=== PATIENT | female | born 1945 | race Caucasian/White ===

== ENCOUNTER 2017-02-06 21:53 | Emergency (ER) | payer MEDICARE ==
[2017-02-07 02:31] LABS: RED BLOOD COUNT 5.12 M/UL (4.00-5.10); WHITE BLOOD COUNT 9.1 K/UL (4.5-11.0)
[2017-03-10] MEDS ORDERED: OSTERA TABLET1 EACH PO (23:34)
[2017-03-17] MEDS ORDERED: NYSTATIN1 EAC1 PO (16:24)
[2017-03-17] MEDS ORDERED: CEFUROXIME500 MG PO (16:29)
[2017-03-17] MEDS ORDERED: CALCIUM600 MG PO (16:37)
[2017-03-17] MEDS ORDERED: DULCOLAX10 MG PR (16:39)
[2017-03-17] MEDS ORDERED: PROTONIX40 MG PO (17:08)
== END 2017-02-07 09:00 | disposition home or self-care (01) ==
LOC: ER1 21:53
PROVIDERS: Emergency Medicine
DX: N39.0 Urinary tract infection, site not specified (principal); M54.5 Low back pain; E11.9 Type 2 diabetes mellitus without complications; Z79.84 Long term (current) use of oral hypoglycemic drugs; Z79.4 Long term (current) use of insulin; Z79.899 Other long term (current) drug therapy
CPT/HCPCS: 36415; 72131; 80053; 81001; 82150; 83690; 85025; 87086; 96365; 96375; 99284; J0696; J2270; J2405; J7050

== ENCOUNTER 2017-02-12 12:27 | Inpatient (IN) | payer MEDICARE ==
[~2017-02-12] VITALS: Ht 167.6 cm; Wt 86.6 kg
[2017-02-12] MEDS ORDERED: FOSAMAX70 MG PO (15:13)
[2017-02-12] MEDS ORDERED: ASPIRIN EC81 MG PO (15:15)
[2017-02-12] MEDS ORDERED: INVOKANA300 MG PO (15:16)
[2017-02-12] MEDS ORDERED: SENNA LAXATIVE8.6 MG PO (15:16)
[2017-02-12] MEDS ORDERED: CLARITIN10 MG PO (15:17)
[2017-02-12] MEDS ORDERED: LEVEMIR100 UNIT/1 SQ (15:17)
[2017-02-12] MEDS ORDERED: VITAMIN C 500500 MG PO (15:18)
[2017-02-12] MEDS ORDERED: SIMVASTATIN40 MG PO (15:19)
[2017-02-12] MEDS ORDERED: FERROUS SULFAT325 MG PO (15:20)
[2017-02-12] MEDS ORDERED: GLUCOPHAGE850 MG PO (15:24)
[2017-02-12 17:07] LABS: HEMOGLOBIN 14.1 gm/dl (12.3-15.3); RED BLOOD COUNT 4.89 M/UL (4.00-5.10); WHITE BLOOD COUNT 16.2 K/UL (4.5-11.0)
[2017-02-12 17:39] LABS: BUN/CREATININE RATIO 17 (0-10)
[2017-02-13 06:08] LABS: HEMOGLOBIN 13.1 gm/dl (12.3-15.3); RED BLOOD COUNT 4.51 M/UL (4.00-5.10)
[2017-02-13 06:34] LABS: BUN/CREATININE RATIO 19 (0-10)
[2017-02-14 05:41] LABS: HEMOGLOBIN 12.8 gm/dl (12.3-15.3); RED BLOOD COUNT 4.43 M/UL (4.00-5.10); WHITE BLOOD COUNT 10.1 K/UL (4.5-11.0)
[2017-02-14 05:57] LABS: BUN/CREATININE RATIO 15 (0-10)
[2017-02-15 05:38] LABS: HEMOGLOBIN 13.8 gm/dl (12.3-15.3); RED BLOOD COUNT 4.82 M/UL (4.00-5.10); WHITE BLOOD COUNT 10.4 K/UL (4.5-11.0)
[2017-02-15 05:57] LABS: BUN/CREATININE RATIO 19 (0-10)
[2017-02-16 05:55] LABS: BUN/CREATININE RATIO 18 (0-10)
[2017-02-17 05:16] LABS: HEMOGLOBIN 13.1 gm/dl (12.3-15.3); RED BLOOD COUNT 4.55 M/UL (4.00-5.10); WHITE BLOOD COUNT 12.3 K/UL (4.5-11.0)
[2017-02-17 06:33] LABS: BUN/CREATININE RATIO 21 (0-10)
[2017-02-18 04:32] LABS: BUN/CREATININE RATIO 16 (0-10)
[2017-02-19] MEDS ORDERED: VITAMIN D250000 UNIT PO (15:23)
[2017-03-10] MEDS ORDERED: OSTERA TABLET1 EACH PO (23:34)
[2017-03-17] MEDS ORDERED: NYSTATIN1 EAC1 PO (16:24)
[2017-03-17] MEDS ORDERED: CEFUROXIME500 MG PO (16:29)
[2017-03-17] MEDS ORDERED: CALCIUM600 MG PO (16:37)
[2017-03-17] MEDS ORDERED: DULCOLAX10 MG PR (16:39)
[2017-03-17] MEDS ORDERED: PROTONIX40 MG PO (17:08)
== END 2017-02-19 16:22 | disposition home or self-care (01) | DRG 478 ==
LOC: M/S 12:27
PROVIDERS: Internal Medicine; Orthopaedic Surgery; Physician Assistant Medical; ADMIT Internal Medicine Infectious Disease
PROC: 0QB03ZX Excision of Lumbar Vertebra, Percutaneous Approach, Diagnostic (ICD-10-PCS; 2017-02-17)
PROC: 0QU03JZ Supplement Lumbar Vertebra with Synthetic Substitute, Percutaneous Approach (ICD-10-PCS; 2017-02-17)
PROC: 0QS03ZZ Reposition Lumbar Vertebra, Percutaneous Approach (ICD-10-PCS; principal; 2017-02-17 17:15)
DX: M80.88XA Other osteoporosis with current pathological fracture, vertebra(e), initial encounter for fracture (principal); N30.00 Acute cystitis without hematuria; T50.905A Adverse effect of unspecified drugs, medicaments and biological substances, initial encounter; Y92.9 Unspecified place or not applicable; B96.20 Unspecified Escherichia coli [E. coli] as the cause of diseases classified elsewhere; E11.649 Type 2 diabetes mellitus with hypoglycemia without coma; R33.9 Retention of urine, unspecified; E66.01 Morbid (severe) obesity due to excess calories; D50.9 Iron deficiency anemia, unspecified; E78.5 Hyperlipidemia, unspecified; M54.16 Radiculopathy, lumbar region; K59.00 Constipation, unspecified; N26.1 Atrophy of kidney (terminal); Z68.30 Body mass index [BMI] 30.0-30.9, adult; Z79.4 Long term (current) use of insulin; Z79.84 Long term (current) use of oral hypoglycemic drugs; Z79.82 Long term (current) use of aspirin; Z79.899 Other long term (current) drug therapy; Z90.49 Acquired absence of other specified parts of digestive tract; Z98.890 Other specified postprocedural states; Z83.3 Family history of diabetes mellitus
CPT/HCPCS: 36415; 71020; 72148; 80048; 80053; 81001; 82962; 83036; 83735; 84132; 84439; 84443; 85025; 85027; 86140; 87040; 87086; 93005; 97116; 97530; J0696; J1200; J2250; J2270; J2370; J2405; J2550; J2710; J3010; J7030; J7050; J7120; Q9962

== ENCOUNTER → 2017-02-22 | Outpatient (CLI) | payer MEDICARE ==
[~2017-02-22] MED LIST: ASPIRIN EC81 MG PO; CALCIUM600 MG PO; CEFUROXIME500 MG PO; CLARITIN10 MG PO; DULCOLAX10 MG PR; FERROUS SULFAT325 MG PO; FOSAMAX70 MG PO; GLUCOPHAGE850 MG PO; INVOKANA300 MG PO; LEVEMIR100 UNIT/1 SQ; NYSTATIN1 EAC1 PO; OSTERA TABLET1 EACH PO; PROTONIX40 MG PO; SENNA LAXATIVE8.6 MG PO; SIMVASTATIN40 MG PO; VITAMIN C 500500 MG PO; VITAMIN D250000 UNIT PO
== END ==
LOC: KOH-I 10:54
DX: M54.5 Low back pain (principal); M48.56XA Collapsed vertebra, not elsewhere classified, lumbar region, initial encounter for fracture; M85.852 Other specified disorders of bone density and structure, left thigh
CPT/HCPCS: 77080

== ENCOUNTER 2020-11-01 10:10 | Inpatient (IN) | payer OTHER ==
[~2020-11-01] VITALS: Ht 167.6 cm; Wt 81.6 kg
[~2020-11-01 10:10] MED LIST changes: +ANTIVERT 25MG T25 MG PO; +CEFUROXIME250 MG PO; +VITAMIN D2 PO
[2020-11-01 11:31] LABS: HEMOGLOBIN 15.3 gm/dl (12.3-15.3); RED BLOOD COUNT 5.22 M/UL (4.00-5.10); WHITE BLOOD COUNT 17.7 K/UL (4.5-11.0)
[2020-11-01 12:43] LABS: BUN/CREATININE RATIO 40 (0-10)
[2020-11-01] MEDS ORDERED: LEVEMIR FL100 UNIT/1 SQ (17:47)
[2020-11-01] MEDS ORDERED: CEPHALEXIN250 MG PO (17:52)
[2020-11-01] MEDS ORDERED: CALCIUM500 MG PO (17:53)
[2020-11-02 00:53] LABS: HEMOGLOBIN 14.3 gm/dl (12.3-15.3); RED BLOOD COUNT 4.85 M/UL (4.00-5.10)
[2020-11-02 00:54] LABS: WHITE BLOOD COUNT 11.7 K/UL (4.5-11.0)
[2020-11-02 01:18] LABS: BUN/CREATININE RATIO 44 (0-10)
--- NOTE | 2020-11-02 16:46 | NUR ---
0942: NOTIFIED DR. EDWARDS OF PATIENT'S TACHCARDIA, TACHYPNEA, AND TEMPERATURE. DISCUSSED LAB RESULTS WITH DR. EDWARDS. NO NEW ORDERS AT THIS TIME. 1230: CONTACTED DR. EDWARDS TO NOTIFY OF FAMILY WANTING TO SPEAK WITH HIM. 1630: DR. EDWARDS ROUNDED, ENTERED NEW ORDERS ON PATIENT. STATES HE WILL CALL PATIENT'S SON AND GIVE UPDATE.
== END 2020-11-02 19:45 | disposition short-term general hospital (02) | DRG 871 ==
LOC: ER1 10:10 → CDU 16:54 → M/S 18:57
PROVIDERS: Physician Assistant; Physician Assistant Medical; ADMIT Internal Medicine
DX: A41.9 Sepsis, unspecified organism (principal); N17.0 Acute kidney failure with tubular necrosis; E87.2 Acidosis; K43.6 Other and unspecified ventral hernia with obstruction, without gangrene; E78.5 Hyperlipidemia, unspecified; E11.9 Type 2 diabetes mellitus without complications; M81.0 Age-related osteoporosis without current pathological fracture; R00.0 Tachycardia, unspecified; Z98.51 Tubal ligation status; Z90.49 Acquired absence of other specified parts of digestive tract; Z88.8 Allergy status to other drugs, medicaments and biological substances; Z83.3 Family history of diabetes mellitus; Z79.82 Long term (current) use of aspirin; Z79.4 Long term (current) use of insulin; Z79.899 Other long term (current) drug therapy; G89.29 Other chronic pain; M54.9 Dorsalgia, unspecified; K21.9 Gastro-esophageal reflux disease without esophagitis; Z20.822 Contact with and (suspected) exposure to COVID-19
CPT/HCPCS: 36415; 36600; 71045; 74018; 80048; 80053; 81001; 82009; 82550; 82553; 82803; 82962; 83605; 83735; 83874; 84484; 85025; 85027; 87040; 87086; 93005; 94660; 94760; 96372; 96374; 96375; 99285; C9113; J0696; J1650; J2185; J2405; J3370; J3475; J7070; Q9965; U0002

== ENCOUNTER 2020-12-09 14:48 | Emergency (ER) | payer OTHER ==
[~2020-12-09 14:48] MED LIST changes: +CALCIUM500 MG PO; +CEPHALEXIN250 MG PO; +LEVEMIR FL100 UNIT/1 SQ
[2020-12-09 15:57] LABS: HEMOGLOBIN 7.9 gm/dl (12.3-15.3); RED BLOOD COUNT 2.97 M/UL (4.00-5.10)
[2020-12-09 16:02] LABS: WHITE BLOOD COUNT 14.5 K/UL (4.5-11.0)
[2020-12-09 16:32] LABS: BUN/CREATININE RATIO 32 (0-10)
[2020-12-10 20:56] LABS: ACINETOBACTER BAUMANNII Not Detected (Negative); CANDIDA ALBICANS Not Detected (Negative); CANDIDA KRUSEI Not Detected (Negative); CANDIDA TROPICALIS Not Detected (Negative); ENTEROCOCCUS Not Detected (Negative); ESCHERICHIA COLI Not Detected (Negative); HAEMOPHILUS INFLUENZAE Not Detected (Negative); KLEBSIELLA OXYTOCA Not Detected (Negative); KLEBSIELLA PNEUMONIAE Not Detected (Negative); KPC-CARBAPENEM-RESISTANCE GENE Not Detected (Negative); PROTEUS Not Detected (Negative); PSEUDOMONAS AERUGINOSA Not Detected (Negative); SERRATIA MARCESANS Not Detected (Negative); STAPHYLOCOCCUS AUREUS Not Detected (Negative); STREP AGALACTIAE (GROUP B) Not Detected (Negative); STREP PYOGENES (GROUP A) Not Detected (Negative); STREPTOCOCCUS Not Detected (Negative); vanA/B (VANCOMYCIN RESIST GENE Not Detected (Negative)
[2020-12-10 22:40] LABS: STAPHYLOCOCCUS DETECTED (Negative); mecA (METHICILLIN RESIST GENE DETECTED (Negative)
== END 2020-12-09 19:54 | disposition home or self-care (01) ==
LOC: ER1 14:48
PROVIDERS: Emergency Medicine
DX: A41.9 Sepsis, unspecified organism (principal); R18.8 Other ascites; E11.9 Type 2 diabetes mellitus without complications; E78.5 Hyperlipidemia, unspecified; Z20.822 Contact with and (suspected) exposure to COVID-19
CPT/HCPCS: 80053; 82550; 82553; 83605; 83690; 83735; 83874; 83880; 84100; 84484; 85025; 85610; 85730; 87040; 87077; 87150; 87186; 96365; 96366; 96368; 99285; J3370; J7030; Q9967; U0002

== ENCOUNTER → 2022-02-05 | Outpatient (CLI) | payer MEDICARE, OTHER | LOC: KOH-I 02-04 09:30 | DX: K43.9 Ventral hernia without obstruction or gangrene (principal) | CPT/HCPCS: 74176 ==